=== PATIENT | female | born 1950 | race Caucasian/White ===

== ENCOUNTER 2017-05-31 12:08 | Observation (INO) | payer BC ==
[2017-05-31] MEDS ORDERED: Sodium Chloride 0.9% 10 ML Syringe FLUSH PRN (12:11)
[2017-05-31] MEDS ORDERED: Lactated Ringers 1,000 ML IV ONE (12:11)
[2017-05-31] MEDS ORDERED: Sodium Chloride 0.9% 2.5 ML Syringe FLUSH PRN (12:11)
--- NOTE | 2017-05-31 12:13 | EDM.PDOC ---
ED HPI GENERAL MEDICAL PROBLEM - General Stated Complaint: AMBULANCE Time Seen by Provider: 05/31/17 12:10 Source of Information: Reports: EMS History Limitations: Reports: No Limitations - History of Present Illness INITIAL COMMENTS - FREE TEXT/NARRATIVE: History of present illness: []Patient had low back surgery one week ago in [place] and came to the ED by ambulance for back pain, muscle cramps, nausea and fever. Patient states she also has diarrhea. Review of systems: As per history of present illness and below otherwise all systems reviewed and negative. Past medical history: As per history of present illness and as reviewed below otherwise noncontributory. Surgical history: As per history of present illness and as reviewed below otherwise noncontributory. Social history: No reported history of drug or alcohol abuse. Family history: As per history of present illness and as reviewed below otherwise noncontributory. Physical exam: General: Well developed, well nourished in NAD HEENT: Atraumatic, normocephalic, pupils reactive, negative for conjunctival pallor or scleral icterus, mucous membranes dry, throat clear, neck supple, nontender, trachea midline. Lungs: Clear to auscultation, breath sounds equal bilaterally, chest nontender. Heart: S1S2, regular, negative for clicks, rubs, or JVD. Abdomen: Soft, nondistended, nontender. Negative for masses or hepatosplenomegaly. Negative for costovertebral tenderness. Pelvis: Stable nontender. Genitourinary: Deferred. Rectal: Deferred. Extremities: Atraumatic, negative for cords or calf pain. Neurovascular unremarkable. Neuro: Awake, alert, oriented. Cranial nerves II through XII unremarkable. Cerebellum unremarkable. Motor and sensory unremarkable throughout. Exam nonfocal. Diagnostics: []CBC shows a white count 13,000 with left shift H&H is 9/28, chemistry negative except for glucose of 2:15 Therapeutics: []IV hydrated, Reglan and Zofran given for nausea she declined pain meds Impression: []The operative pain, Plan: []Increase fluids decrease Percocet, although primary care Definitive disposition and diagnosis as appropriate pending reevaluation and review of above. Head ache and neck pain Pain Score (Numeric/FACES): 9 - Related Data Allergies Allergy/AdvReac Type Severity Reaction Status Date / Time No Known Allergies Allergy Verified 05/31/17 12:27 Home Meds: Home Meds tiZANidine [Zanaflex] 4 mg PO Q8H PRN 11/15/14 [History] Acetaminophen/oxyCODONE [Percocet 325-5 MG] 1 each PO Q4H PRN 05/31/17 [History] Alendronate [Fosamax] 10 mg PO Q7D@0700 05/31/17 [History] Calcium Carbonate [Calcium] 1,000 mg PO DAILY 05/31/17 [History] Cholecalciferol (Vitamin D3) [Vitamin D3] 800 units PO DAILY 05/31/17 [History] Gabapentin [Neurontin] 600 mg PO TID 05/31/17 [History] LORazepam [Ativan] 0.25 mg PO Q8H PRN 05/31/17 [History] Polyethylene Glycol 3350 [MiraLAX] 17 gm PO DAILY 05/31/17 [History] Sennosides [Senna] 2 tab PO BEDTIME PRN 05/31/17 [History] atorvaSTATin [Lipitor] 20 mg PO BEDTIME 05/31/17 [History] metFORMIN HCl [Metformin HCl] 1,000 mg PO BIDMEALS 05/31/17 [History] Past Medical History 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 , 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 Musculoskeletal History: Reports: Neck Pain, Chronic, Other (See Below) Other Musculoskeletal History: osteopenia Neurological History: Reports: Other (See Below) Other Neuro History: BOTOX EVERY 3 MONTHS FOR HEADACHES; CORTISONE INJECTIONS FOR LBP AND SCIATICA EVERY 1-2 YEARS Oncologic (Cancer) History: Reports: Cervix - Past Surgical History HEENT Surgical History: Reports: Naso-Sinus Surgery, Oral Surgery Musculoskeletal Surgical History: Reports: Other (See Below) Other Musculoskeletal Surgeries/Procedures:: foot surgery Social & Family History - Tobacco Use Smoking Status *Q: Never Smoker Second Hand Smoke Exposure: No - Recreational Drug Use Recreational Drug Use: No ED ROS GENERAL - Review of Systems Review Of Systems: See Below (See history of present illness) ED EXAM,LOWER BACK PAIN/INJURY - Physical Exam Exam: See Below (See history of present illness) Course - Vital Signs Last Recorded V/S: Last Vital Signs Temp 98.4 F 05/31/17 12:34 Pulse 92 05/31/17 14:22 Resp 22 H 05/31/17 14:22 BP 152/86 H 05/31/17 14:22 Pulse Ox 98 05/31/17 14:22 - Orders/Labs/Meds Orders: Active Orders 24 hr Category Date Time Status Abdomen Pelvis w Cont [CT] Stat Exams 05/31/17 13:34 Taken Chest 1V Frontal [CR] Stat Exams 05/31/17 12:14 Taken UA W/MICROSCOPIC [URIN] Stat Lab 05/31/17 14:46 Ordered Sodium Chloride 0.9% [Saline Flush] Med 05/31/17 12:11 Active 10 ml FLUSH ASDIRECTED PRN Sodium Chloride 0.9% [Saline Flush] Med 05/31/17 12:11 Active 2.5 ml FLUSH ASDIRECTED PRN Saline Lock Insert [OM.PC] Stat Oth 05/31/17 12:11 Ordered Medication Orders Sodium Chloride (Saline Flush) 10 ml FLUSH ASDIRECTED PRN PRN Reason: Keep Vein Open Last Admin: 05/31/17 12:28 Dose: 10 ml Sodium Chloride (Saline Flush) 2.5 ml FLUSH ASDIRECTED PRN PRN Reason: Keep Vein Open Last Admin: 05/31/17 12:28 Dose: 2.5 ml Labs: Laboratory Tests 05/31/17 05/31/17 05/31/17 Range/Units 12:31 12:31 14:46 WBC 13.84 H (4.0-11.0) K/uL RBC 3.30 L (4.30-5.90) M/uL Hgb 9.6 L (12.0-16.0) g/dL Hct 28.9 L (36.0-46.0) % MCV 87.6 (80.0-98.0) fL MCH 29.1 (27.0-32.0) pg MCHC 33.2 (31.0-37.0) g/dL RDW Std Deviation 41.7 (28.0-62.0) fl RDW Coeff of Sarah 13 (11.0-15.0) % Plt Count 322 (150-400) K/uL MPV 9.90 (7.40-12.00) fL Neut % (Auto) 89.4 H (48.0-80.0) % Lymph % (Auto) 5.5 L (16.0-40.0) % [place] % (Auto) 4.6 (0.0-15.0) % Eos % (Auto) 0.4 (0.0-7.0) % Baso % (Auto) 0.1 (0.0-1.5) % Neut # (Auto) 12.4 H (1.4-5.7) K/uL Lymph # (Auto) 0.8 (0.6-2.4) K/uL [place] # (Auto) 0.6 (0.0-0.8) K/uL Eos # (Auto) 0.1 (0.0-0.7) K/uL Baso # (Auto) 0.0 (0.0-0.1) K/uL Nucleated RBC % 0.0 /100WBC Nucleated RBCs # 0 K/uL Sodium 138 (136-145) mmol/L Potassium 3.7 (3.5-5.1) mmol/L Chloride 102 (98-107) mmol/L Carbon Dioxide 24.9 (21.0-32.0) mmol/L BUN 13 (7.0-18.0) mg/dL Creatinine 0.8 (0.6-1.0) mg/dL Est Cr Clr Drug Dosing 58.48 mL/min Estimated GFR (MDRD) > 60.0 ml/min Glucose 215 H (74-106) mg/dL Calcium 8.5 (8.5-10.1) mg/dL Total Bilirubin 0.4 (0.2-1.0) mg/dL AST 60 H (15-37) IU/L ALT 33 (14-63) IU/L Alkaline Phosphatase 78 (46-116) U/L Total Protein 6.9 (6.4-8.2) g/dL Albumin 2.9 L (3.4-5.0) g/dL Globulin 4.0 H (2.0-3.5) g/dL Albumin/Globulin Ratio 0.7 L (1.3-2.8) Urine Color YELLOW Urine Appearance CLEAR Urine pH 6.5 (5.0-8.0) Ur Specific [place] <= 1.005 (1.001-1.035) Urine Protein NEGATIVE (NEGATIVE) mg/dL Urine Glucose (UA) NEGATIVE (NEGATIVE) mg/dL Urine Ketones 15 H (NEGATIVE) mg/dL Urine Occult Blood NEGATIVE (NEGATIVE) Urine Nitrite NEGATIVE (NEGATIVE) Urine Bilirubin NEGATIVE (NEGATIVE) Urine Urobilinogen 0.2 (<2.0) EU/dL Ur Leukocyte Esterase NEGATIVE (NEGATIVE) Urine RBC 0-1 (0-2/HPF) Urine WBC 0-3 (0-5/HPF) Ur Epithelial Cells FEW (NONE-FEW) Urine Bacteria FEW (NEGATIVE) Meds: Medications Generic Name Dose Route Start Last Admin Trade Name Freq PRN Reason Stop Dose Admin Sodium Chloride 10 ml 05/31/17 12:11 05/31/17 12:28 Saline Flush FLUSH 10 ml ASDIRECTED PRN Administration Keep Vein Open Sodium Chloride 2.5 ml 05/31/17 12:11 05/31/17 12:28 Saline Flush FLUSH 2.5 ml ASDIRECTED PRN Administration Keep Vein Open Discontinued Medications Generic Name Dose Route Start Last Admin Trade Name Freq PRN Reason Stop Dose Admin Lactated Ringer's 1,000 mls @ 999 mls/hr 05/31/17 12:11 05/31/17 12:25 Ringers, Lactated IV 05/31/17 13:11 999 mls/hr .BOLUS ONE Administration Metoclopramide HCl 10 mg 05/31/17 12:20 05/31/17 12:29 Reglan IV 05/31/17 12:21 10 mg ONETIME ONE Administration Morphine Sulfate 2 mg 05/31/17 13:31 Morphine IVPUSH 05/31/17 13:32 ONETIME ONE Departure - Departure Time of Disposition: 15:15 Disposition: Home, Self-Care 01 Condition: Good Clinical Impression: Postoperative pain - Discharge Information Referrals: PCP,None [Primary Care Provider] - Additional Instructions: The following information is given to patients seen in the emergency department who are being discharged to home. This information is to outline your options for follow-up care. We provide all patients seen in our emergency department with a follow-up referral. The need for follow-up, as well as the timing and circumstances, are variable depending upon the specifics of your emergency department visit. If you don't have a primary care physician on staff, we will provide you with a referral. We always advise you to contact your personal physician following an emergency department visit to inform them of the circumstance of the visit and for follow-up with them and/or the need for any referrals to a consulting specialist. The emergency department will also refer you to a specialist when appropriate. This referral assures that you have the opportunity for follow-up care with a specialist. All of these measure are taken in an effort to provide you with optimal care, which includes your follow-up. Under all circumstances we always encourage you to contact your private physician who remains a resource for coordinating your care. When calling for follow-up care, please make the office aware that this follow-up is from your recent emergency room visit. If for any reason you are refused follow-up, please contact the [facility] Emergency Department at and asked to speak to the emergency department charge nurse. [facility] [address] [place] [address] - My Orders Last 24 Hours: My Active Orders 05/31/17 12:11 Sodium Chloride 0.9% [Saline Flush] 10 ml FLUSH ASDIRECTED PRN Sodium Chloride 0.9% [Saline Flush] 2.5 ml FLUSH ASDIRECTED PRN Saline Lock Insert [OM.PC] Stat 05/31/17 12:14 Chest 1V Frontal [CR] Stat 05/31/17 13:34 Abdomen Pelvis w Cont [CT] Stat 05/31/17 14:46 UA W/MICROSCOPIC [URIN] Stat - Assessment/Plan Last 24 Hours: My Active Orders 05/31/17 12:11 Sodium Chloride 0.9% [Saline Flush] 10 ml FLUSH ASDIRECTED PRN Sodium Chloride 0.9% [Saline Flush] 2.5 ml FLUSH ASDIRECTED PRN Saline Lock Insert [OM.PC] Stat 05/31/17 12:14 Chest 1V Frontal [CR] Stat 05/31/17 13:34 Abdomen Pelvis w Cont [CT] Stat 05/31/17 14:46 UA W/MICROSCOPIC [URIN] Stat
[2017-05-31] MEDS ORDERED: Metoclopramide 10 MG/2 ML SDV IV ONE (12:20)
[2017-05-31 12:53] LABS: CHLORIDE,CL 102 mmol/L (98-107); SODIUM,NA 138 mmol/L (136-145)
[2017-05-31] MEDS ORDERED: Morphine 4 MG/ML Syringe IVPUSH ONE (13:31)
[2017-05-31] MEDS ORDERED: Iopamidol 755 Mg/ML 100 ML Bottle IVPUSH ONE (15:27)
[2017-05-31] MEDS ORDERED: LORazepam 0.5 MG Tab PO PRN (17:07)
[2017-05-31] MEDS ORDERED: tiZANidine 4 MG Tab PO PRN (17:07)
[2017-05-31] MEDS ORDERED: Sennosides 8.6 MG Tab PO PRN (17:07)
[2017-05-31] MEDS ORDERED: Acetaminophen/oxyCODONE 325-5 MG Tab PO PRN (17:07)
[2017-05-31] MEDS ORDERED: Ondansetron 4 MG/2 ML SDV IVPUSH PRN (17:08)
[2017-05-31] MEDS ORDERED: Morphine 10 MG/ML Syringe IVPUSH PRN (17:08)
[2017-05-31] MEDS ORDERED: Lactated Ringers 1,000 ML IV SCH (17:15)
--- NOTE | 2017-05-31 17:15 | PCM.HP ---
H&P History of Present Illness - General Admit Problem/Dx: Admission Diagnosis/Problem Admission Diagnosis/Problem Pain - History of Present Illness Initial Comments - Free Text/Narative: 66 yo female with pmh of DM who had spinal fusion surgery six days ago. She had been doing well and tolerating pain following surgery until today. She reports lower back pain and spasms of her legs. She is somewhat tremulous on exam today which the reports is likely anxiety driven. Head ache and neck pain Pain Score (Numeric/FACES): 4 - Related Data Allergies/Adverse Reactions: Allergies Allergy/AdvReac Type Severity Reaction Status Date / Time No Known Allergies Allergy Verified 05/31/17 12:27 Home Medications: Home Meds tiZANidine [Zanaflex] 4 mg PO Q8H PRN 11/15/14 [History] Acetaminophen/oxyCODONE [Percocet 325-5 MG] 1 - 2 each PO Q4H PRN 05/31/17 [ History] Alendronate [Fosamax] 10 mg PO Q7D@0700 05/31/17 [History] Calcium Carbonate [Calcium] 1,000 mg PO DAILY 05/31/17 [History] Cholecalciferol (Vitamin D3) [Vitamin D3] 800 units PO DAILY 05/31/17 [History] Gabapentin [Neurontin] 600 mg PO TID 05/31/17 [History] LORazepam [Ativan] 0.25 mg PO Q8H PRN 05/31/17 [History] Polyethylene Glycol 3350 [MiraLAX] 17 gm PO DAILY 05/31/17 [History] Sennosides [Senna] 2 tab PO BEDTIME PRN 05/31/17 [History] atorvaSTATin [Lipitor] 20 mg PO BEDTIME 05/31/17 [History] metFORMIN HCl [Metformin HCl] 1,000 mg PO BIDMEALS 05/31/17 [History] Past Medical History Cardiovascular History: Reports: High Cholesterol 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 , 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 Musculoskeletal History: Reports: Neck Pain, Chronic, Other (See Below) Other Musculoskeletal History: osteopenia Neurological History: Reports: Other (See Below) Other Neuro History: BOTOX EVERY 3 MONTHS FOR HEADACHES; CORTISONE INJECTIONS FOR LBP AND SCIATICA EVERY 1-2 YEARS Oncologic (Cancer) History: Reports: Cervix - Past Surgical History HEENT Surgical History: Reports: Naso-Sinus Surgery, Oral Surgery Musculoskeletal Surgical History: Reports: Other (See Below) Other Musculoskeletal Surgeries/Procedures:: foot surgery Social & Family History - Tobacco Use Smoking Status *Q: Never Smoker Second Hand Smoke Exposure: No - Recreational Drug Use Recreational Drug Use: No H&P Review of Systems - Review of Systems: Review Of Systems: ROS reveals no pertinent complaints other than HPI. Exam - Exam Exam: See Below - Vital Signs Vital Signs: Last Vital Signs Temp 36.9 C 05/31/17 12:34 Pulse 115 H 05/31/17 15:56 Resp 14 05/31/17 15:56 BP 158/77 H 05/31/17 15:56 Pulse Ox 93 L 05/31/17 15:56 Weight: 74.843 kg - Exam General: Alert, Oriented HEENT: Mucosa Moist & [place] Neck: Supple, Trachea Midline, Full Range of Motion Lungs: Clear to Auscultation, Normal Respiratory Effort Cardiovascular: Regular Rate, Regular Rhythm GI/Abdominal Exam: Soft, Non-Tender Back Exam: Paraspinal Tenderness, Vertebral Tenderness (along surgical scar, no erythema, edema, or induration around surgical site) Extremities: Normal Range of Motion, Non-Tender, No Pedal Edema Skin: Warm, Dry, Intact Neurological: Cranial Nerves Intact, Strength Equal Bilateral, Normal Speech, Normal Tone, Sensation Intact. No: Focal Deficit - Patient Data Lab Results Last 24 hrs: Laboratory Results - last 24 hr 05/31/17 05/31/17 05/31/17 Range/Units 12:31 12:31 14:46 WBC 13.84 H (4.0-11.0) K/uL RBC 3.30 L (4.30-5.90) M/uL Hgb 9.6 L (12.0-16.0) g/dL Hct 28.9 L (36.0-46.0) % MCV 87.6 (80.0-98.0) fL MCH 29.1 (27.0-32.0) pg MCHC 33.2 (31.0-37.0) g/dL RDW Std Deviation 41.7 (28.0-62.0) fl RDW Coeff of Sarah 13 (11.0-15.0) % Plt Count 322 (150-400) K/uL MPV 9.90 (7.40-12.00) fL Neut % (Auto) 89.4 H (48.0-80.0) % Lymph % (Auto) 5.5 L (16.0-40.0) % [place] % (Auto) 4.6 (0.0-15.0) % Eos % (Auto) 0.4 (0.0-7.0) % Baso % (Auto) 0.1 (0.0-1.5) % Neut # (Auto) 12.4 H (1.4-5.7) K/uL Lymph # (Auto) 0.8 (0.6-2.4) K/uL [place] # (Auto) 0.6 (0.0-0.8) K/uL Eos # (Auto) 0.1 (0.0-0.7) K/uL Baso # (Auto) 0.0 (0.0-0.1) K/uL Nucleated RBC % 0.0 /100WBC Nucleated RBCs # 0 K/uL Sodium 138 (136-145) mmol/L Potassium 3.7 (3.5-5.1) mmol/L Chloride 102 (98-107) mmol/L Carbon Dioxide 24.9 (21.0-32.0) mmol/L BUN 13 (7.0-18.0) mg/dL Creatinine 0.8 (0.6-1.0) mg/dL Est Cr Clr Drug Dosing 58.48 mL/min Estimated GFR (MDRD) > 60.0 ml/min Glucose 215 H (74-106) mg/dL Calcium 8.5 (8.5-10.1) mg/dL Total Bilirubin 0.4 (0.2-1.0) mg/dL AST 60 H (15-37) IU/L ALT 33 (14-63) IU/L Alkaline Phosphatase 78 (46-116) U/L Total Protein 6.9 (6.4-8.2) g/dL Albumin 2.9 L (3.4-5.0) g/dL Globulin 4.0 H (2.0-3.5) g/dL Albumin/Globulin Ratio 0.7 L (1.3-2.8) Urine Color YELLOW Urine Appearance CLEAR Urine pH 6.5 (5.0-8.0) Ur Specific [place] <= 1.005 (1.001-1.035) Urine Protein NEGATIVE (NEGATIVE) mg/dL Urine Glucose (UA) NEGATIVE (NEGATIVE) mg/dL Urine Ketones 15 H (NEGATIVE) mg/dL Urine Occult Blood NEGATIVE (NEGATIVE) Urine Nitrite NEGATIVE (NEGATIVE) Urine Bilirubin NEGATIVE (NEGATIVE) Urine Urobilinogen 0.2 (<2.0) EU/dL Ur Leukocyte Esterase NEGATIVE (NEGATIVE) Urine RBC 0-1 (0-2/HPF) Urine WBC 0-3 (0-5/HPF) Ur Epithelial Cells FEW (NONE-FEW) Urine Bacteria FEW (NEGATIVE) Result Diagrams: 05/31/17 12:31 05/31/17 12:31 Problem List Initiated/Reviewed/Updated: Yes Orders Last 24hrs: Active Orders 24 hr Category Date Time Status Patient Status [ADT] Stat ADT 05/31/17 15:54 Active Blood Glucose Check, Bedside [RC] TIDMEALS Care 05/31/17 17:08 Ordered Oxygen Therapy [RC] PRN Care 05/31/17 17:08 Ordered Up ad Deirdre [RC] ASDIRECTED Care 05/31/17 17:08 Ordered VTE/DVT Education [RC] PER UNIT ROUTINE Care 05/31/17 17:08 Ordered Vital Signs [RC] Q4H Care 05/31/17 17:08 Ordered [place] [employer] Diet [DIET] Diet 05/31/17 Breakfast Ordered Abdomen Pelvis w Cont [CT] Stat Exams 05/31/17 13:34 Taken Chest 1V Frontal [CR] Stat Exams 05/31/17 12:14 Taken BASIC METABOLIC PANEL,BMP [CHEM] AM Lab 06/01/17 05:11 Ordered CBC WITH AUTO DIFF [HEME] AM Lab 06/01/17 05:11 Ordered UA W/MICROSCOPIC [URIN] Stat Lab 05/31/17 14:46 Ordered Acetaminophen/oxyCODONE [Percocet 325-5 MG] Med 05/31/17 17:07 Ordered 1 - 2 each PO Q4H PRN Calcium Carbonate [Calcium] Med 06/01/17 09:00 Ordered 1,000 mg PO DAILY Cholecalciferol (Vitamin D3) [Vitamin D3] Med 06/01/17 09:00 Ordered 800 units PO DAILY Gabapentin Med 05/31/17 22:00 Ordered 600 mg PO TID Insulin Aspart [NovoLOG] Med 06/01/17 07:30 Ordered See Protocol SUBCUT TIDAC LORazepam [Ativan] Med 05/31/17 17:07 Ordered 0.25 mg PO Q8H PRN Lactated Ringers @ 125 MLS/HR(1000ml) Med 05/31/17 17:15 Ordered Lactated Ringers [Ringers, Lactated] 1,000 ml IV ASDIRECTED Morphine Med 05/31/17 17:08 Ordered 2 mg IVPUSH Q2H PRN Ondansetron [Zofran] Med 05/31/17 17:08 Ordered 4 mg IVPUSH Q4H PRN Polyethylene Glycol 3350 [MiraLAX] Med 06/01/17 09:00 Ordered 17 gm PO DAILY Sennosides [Senna] Med 05/31/17 17:07 Ordered 2 tab PO BEDTIME PRN Sodium Chloride 0.9% [Saline Flush] Med 05/31/17 12:11 Active 10 ml FLUSH ASDIRECTED PRN Sodium Chloride 0.9% [Saline Flush] Med 05/31/17 12:11 Active 2.5 ml FLUSH ASDIRECTED PRN atorvaSTATin [Lipitor] Med 05/31/17 21:00 Ordered 20 mg PO BEDTIME tiZANidine [Zanaflex] Med 05/31/17 17:07 Ordered 4 mg PO Q8H PRN Saline Lock Insert [OM.PC] Stat Oth 05/31/17 12:11 Ordered Sequential Compression Device [OM.PC] Per Unit Routine Oth 05/31/17 17:08 Ordered Resuscitation Status Routine Resus Stat 05/31/17 17:08 Ordered Medication Orders Sodium Chloride (Saline Flush) 10 ml FLUSH ASDIRECTED PRN PRN Reason: Keep Vein Open Last Admin: 05/31/17 12:28 Dose: 10 ml Sodium Chloride (Saline Flush) 2.5 ml FLUSH ASDIRECTED PRN PRN Reason: Keep Vein Open Last Admin: 05/31/17 12:28 Dose: 2.5 ml Assessment/Plan Comment:: 66 yo female with recent back surgery admitted for pain control. Patient did spike fever of 102 on the medical floor. Blood cultures were obtained and she was started on IV Vancomycin and Zosyn. No obvious source of infection was identified. CT abdomen/pelvis reported no acute findings with postoperative changes of the posterolateral fusion at L4-5. Chest x-ray and UA were unremarkable. I spoke with Jesus Peralta at [facility] who then spoke with Dr. Villegas. Due to the fever it was felt patient may need exploration of surgical site. Dr. Villegas has accepted the patient for transfer. Transfer to [facility] was then arranged.
[2017-05-31] MEDS ORDERED: HYDROmorphone 2 MG/ML Syringe IVPUSH PRN (19:05)
[2017-05-31] MEDS ORDERED: HYDROmorphone 4 MG/ML Syringe IVPUSH PRN (19:31)
[2017-05-31] MEDS ORDERED: HYDROmorphone 1 MG/ML Syringe IVPUSH PRN (19:39)
[2017-05-31] MEDS ORDERED: atorvaSTATin 20 MG Tab PO SCH (21:00)
[2017-05-31] MEDS ORDERED: Piperacillin/Tazobactam 4.5 GM in Sodium Chloride 0.9% 100 ML IV SCH (21:00)
[2017-05-31 21:13] VITALS: BP 151/83
[2017-05-31] MEDS ORDERED: Non-Formulary Medication 1 Each (Gabapentin 600 MG) PO SCH (22:00)
[2017-06-01] MEDS ORDERED: Insulin Aspart 100 Units/ML 3 ML Pen SUBCUT SCH (07:30)
[2017-06-01] MEDS ORDERED: Cholecalciferol (Vitamin D3) 400 Unit Tab PO SCH (09:00)
[2017-06-01] MEDS ORDERED: Polyethylene Glycol 3350 Powder 17 GM Packet PO SCH (09:00)
[2017-06-01] MEDS ORDERED: Non-Formulary Medication 1 Each (Calcium Carbonate [Calcium] 1,000 MG) PO SCH (09:00)
--- NOTE | 2017-06-01 14:25 | CR ---
EXAM DATE: 05/31/17 PATIENT'S AGE: 66 Patient: MARGARITO APPLE Facility: [place], [place] Site . Site : 1950 Study: XRay Chest [id number] 1:33:32 PM Ordering Physician: Dmitri Flores Final Report: INDICATION: Pain shortness breath TECHNIQUE: Single view chest. FINDINGS: The lungs are clear. The heart, mediastinum and pulmonary vessels are of normal size. There is no evidence of pleural disease. IMPRESSION: Negative chest. Dictated by Aissatou Amaya MD @ May 31 2017 2:00PM (Electronic Signature) Report Signed by Proxy. KARINE
--- NOTE | 2017-06-01 14:26 | CT ---
EXAM DATE: 05/31/17 PATIENT'S AGE: 66 Patient: MARGARITO APPLE Facility: [place], [place] Site . Site : 1950 Study: CT Abdomen/Pelvis [id number] 2:29:32 PM Ordering Physician: Dmitri Flores Final Report: INDICATION: abd pain Indication: Abdominal pain. Technique: CT of the abdomen pelvis. 100 cc of Isovue 370 IV. Coronal/ sagittal reconstruction images. Comparison: CT of the abdomen pelvis 09/17/2016. Findings: Lung bases: There is no pleural or pericardial effusion. The heart size is normal. The lung bases demonstrate no acute airspace disease. There is no basilar pneumothorax. Abdomen/pelvis: Diffuse hepatic steatosis. No solid hepatic mass. Sparing near the gallbladder fossa. No adrenal mass. Spleen size is normal. No pancreatic mass or pancreatic duct dilation. No glandular atrophy. There is no wall thickening within the small bowel or colon. There is no perienteric edema. There is no transition point to indicate a mechanical small-bowel or colonic obstruction. No abdominal aortic aneurysm. Celiac axis, SMA, and ROSITA are patent. No adenopathy is seen by size criteria in the pelvis, retroperitoneal, gastrohepatic ligament, small bowel mesentery. Uterus appears surgically absent. The bone windows demonstrate no lytic or blastic bone lesions. Osteophytic spurring present of the endplates. The patient is post posterior fusion at L4- L5. There is a mild compression deformity present at the superior endplate of L3. Alignment is preserved on sagittal reconstruction images. Fusion changes are new when compared with 09/17/2016. Impression: 1. No acute findings are seen to explain the patient`s symptoms. 2. Postoperative changes of the posterolateral fusion at L4-5, new from 2016. 3. Minimal compression deformity of the superior endplate of L3. 4. Diffuse hepatic steatosis, with a region of sparing near the gallbladder fossa. Dictated by Bennie Max MD @ 05/31/2017 3:02:28 PM Dictated by: Bennie Max MD @ 05/31/2017 15:02:37 (Electronic Signature) Report Signed by Proxy. [facility] AREA HOSPITALCalli
== END 2017-05-31 21:35 ==
LOC: MW.ED 12:08 → MW.MS 15:54
PROVIDERS: ADMIT Internal Medicine; ATTEND Internal Medicine
DX: R50.9 Fever, unspecified (principal); M54.5 Low back pain; E78.00 Pure hypercholesterolemia, unspecified; E11.9 Type 2 diabetes mellitus without complications; Z79.84 Long term (current) use of oral hypoglycemic drugs; Z79.899 Other long term (current) drug therapy
CPT/HCPCS: 36415; 71045; 74177; 80053; 81001; 85025; 87040; 96361; 96365; 96375; 99285; A9270; G0378; J1170; J2270; J2405; J2543; J2765; J3370; J7030; J7050; J7120; Q9967; 82962; 96374; 99283

== ENCOUNTER 2018-04-03 12:05 | Emergency (ER) | payer BC, MEDICARE ==
[2018-04-03 12:23] VITALS: BP 145/87
--- NOTE | 2018-04-03 12:41 | EDM.PDOC ---
ED HPI GENERAL MEDICAL PROBLEM - General Chief Complaint: Genitourinary Problem Stated Complaint: UTI Time Seen by Provider: 04/03/18 12:10 Source of Information: Reports: Patient History Limitations: Reports: No Limitations - History of Present Illness INITIAL COMMENTS - FREE TEXT/NARRATIVE: History of present illness: []Patient has had pain with urination since March 28 has been persistent. She has not measured a temperature but states she feels like she is having fevers. She denies any vomiting, diarrhea, abdominal pain or any other complaints. Review of systems: As per history of present illness and below otherwise all systems reviewed and negative. Past medical history: As per history of present illness and as reviewed below otherwise noncontributory. Surgical history: As per history of present illness and as reviewed below otherwise noncontributory. Social history: No reported history of drug or alcohol abuse. Family history: As per history of present illness and as reviewed below otherwise noncontributory. Physical exam: General: Well developed, well nourished in NAD HEENT: Atraumatic, normocephalic, pupils reactive, negative for conjunctival pallor or scleral icterus, mucous membranes moist, throat clear, neck supple, nontender, trachea midline. Lungs: Clear to auscultation, breath sounds equal bilaterally, chest nontender. Heart: S1S2, regular, negative for clicks, rubs, or JVD. Abdomen: NABS, Soft, nondistended, nontender. Negative for masses or hepatosplenomegaly. Negative for costovertebral tenderness. Pelvis: Stable nontender. Genitourinary: Deferred. Rectal: Deferred. Extremities: Atraumatic, negative for cords or calf pain. Neurovascular unremarkable. Neuro: Awake, alert, oriented. Cranial nerves II through XII unremarkable. Cerebellum unremarkable. Motor and sensory unremarkable throughout. Exam nonfocal. Skin:warm and dry Diagnostics: UA Therapeutics: None ED Course: Unremarkable Impression: UTI Prescriptions: Bactrim Plan: Increase fluids, take meds as directed. Tylenol Motrin for pain and fevers, follow-up with primary care or return to ER if symptoms worsen or change. Definitive disposition and diagnosis as appropriate pending reevaluation and review of above. 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 Musculoskeletal History: Reports: Neck Pain, Chronic, Other (See Below) Other Musculoskeletal History: osteopenia Neurological History: Reports: Other (See Below) Other Neuro History: BOTOX EVERY 3 MONTHS FOR HEADACHES; CORTISONE INJECTIONS FOR LBP AND SCIATICA EVERY 1-2 YEARS Psychiatric History: Reports: Anxiety Endocrine/Metabolic History: Reports: Diabetes, Type II Hematologic History: Reports: None Immunologic History: Reports: None Oncologic (Cancer) History: Reports: Cervix Dermatologic History: Reports: None - Past Surgical History HEENT Surgical History: Reports: Naso-Sinus Surgery, Oral Surgery GI Surgical History: Reports: Other (See Below) Other GI Surgeries/Procedures: "Cancer to abdomen when younger" Musculoskeletal Surgical History: Reports: Other (See Below) Other Musculoskeletal Surgeries/Procedures:: foot surgery Social & Family History - Family History Family Medical History: Noncontributory - Tobacco Use Smoking Status *Q: Never Smoker - Caffeine Use Caffeine Use: Reports: Coffee, Soda, Tea - Recreational Drug Use Recreational Drug Use: No ED ROS GENERAL - Review of Systems Review Of Systems: ROS reveals no pertinent complaints other than HPI. ED EXAM, RENAL/ - Physical Exam Exam: See Below (See history of present illness) Course - Vital Signs Last Recorded V/S: Last Vital Signs Temp 96.0 F 04/03/18 12:21 Pulse 85 04/03/18 12:21 Resp 18 04/03/18 12:21 BP 145/87 H 04/03/18 12:21 Pulse Ox 95 04/03/18 12:21 - Orders/Labs/Meds Orders: Active Orders 24 hr Category Date Time Status CULTURE URINE [RM] Routine Lab 04/03/18 12:21 Received Labs: Laboratory Tests 04/03/18 Range/Units 12:25 Urine Color YELLOW Urine Appearance CLEAR Urine pH 6.0 (5.0-8.0) Ur Specific [place] 1.020 (1.001-1.035) Urine Protein NEGATIVE (NEGATIVE) mg/dL Urine Glucose (UA) NEGATIVE (NEGATIVE) mg/dL Urine Ketones NEGATIVE (NEGATIVE) mg/dL Urine Occult Blood NEGATIVE (NEGATIVE) Urine Nitrite NEGATIVE (NEGATIVE) Urine Bilirubin NEGATIVE (NEGATIVE) Urine Urobilinogen 0.2 (<2.0) EU/dL Ur Leukocyte Esterase SMALL H (NEGATIVE) Urine RBC 1-2 (0-2/HPF) Urine WBC 30-40 (0-5/HPF) Ur Epithelial Cells RARE (NONE-FEW) Urine Bacteria FEW (NEGATIVE) Departure - Departure Time of Disposition: 12:56 Disposition: Home, Self-Care 01 Condition: Good Clinical Impression: UTI (urinary tract infection) Qualifiers: Urinary tract infection type: site unspecified Hematuria presence: without hematuria Qualified Code(s): N39.0 - Urinary tract infection, site not specified - Discharge Information *PRESCRIPTION DRUG MONITORING PROGRAM REVIEWED*: No *COPY OF PRESCRIPTION DRUG MONITORING REPORT IN PATIENT FOSTER: No Prescriptions: Sulfamethoxazole/Trimethoprim [Bactrim Ds Tablet] 1 each PO BID #20 tablet Referrals: Grey Wallace MD [Primary Care Provider] - Forms: ED Department Discharge Additional Instructions: The following information is given to patients seen in the emergency department who are being discharged to home. This information is to outline your options for follow-up care. We provide all patients seen in our emergency department with a follow-up referral. The need for follow-up, as well as the timing and circumstances, are variable depending upon the specifics of your emergency department visit. If you don't have a primary care physician on staff, we will provide you with a referral. We always advise you to contact your personal physician following an emergency department visit to inform them of the circumstance of the visit and for follow-up with them and/or the need for any referrals to a consulting specialist. The emergency department will also refer you to a specialist when appropriate. This referral assures that you have the opportunity for follow-up care with a specialist. All of these measure are taken in an effort to provide you with optimal care, which includes your follow-up. Under all circumstances we always encourage you to contact your private physician who remains a resource for coordinating your care. When calling for follow-up care, please make the office aware that this follow-up is from your recent emergency room visit. If for any reason you are refused follow-up, please contact the [facility] Emergency Department at and asked to speak to the emergency department charge nurse. Increase fluids, take meds as directed. Tylenol Motrin for pain and fevers, follow-up with primary care or return to ER if symptoms worsen or change. [facility] [address] [place] [id number] - My Orders Last 24 Hours: My Active Orders 04/03/18 12:21 CULTURE URINE [RM] Routine - Assessment/Plan Last 24 Hours: My Active Orders 04/03/18 12:21 CULTURE URINE [RM] Routine
== END 2018-04-03 13:20 | disposition home or self-care (01) ==
LOC: MW.ED 12:05
DX: N39.0 Urinary tract infection, site not specified (principal); E78.00 Pure hypercholesterolemia, unspecified; I10 Essential (primary) hypertension; Z79.899 Other long term (current) drug therapy
CPT/HCPCS: 81001; 87086; 87088; 87186; 99283

== ENCOUNTER 2020-04-29 11:09 | Emergency (ER) | payer BC ==
--- NOTE | 2020-04-29 11:16 | EDM.PDOC ---
ED HPI GENERAL MEDICAL PROBLEM - General Chief Complaint: ENT Problem Stated Complaint: LEFT EYE SWOLLEN Time Seen by Provider: 04/29/20 11:11 Source of Information: Reports: Patient History Limitations: Reports: No Limitations - History of Present Illness INITIAL COMMENTS - FREE TEXT/NARRATIVE: 69-year-old female with history of diabetes presents with purulent drainage from the left eye since yesterday. She also notes mild swelling to the left lateral upper eyelid. She denies blurry vision, fever, chills, contact lens use, headache, dizziness, vomiting. ROS: A 10-point review of systems, other than pertinent positives and negatives as stated per HPI, is otherwise negative Past medical history: No additional pertinent history Past Surgical history: No additional pertinent history Social history: No additional pertinent history Family history: No additional pertinent history PHYSICAL EXAM General: AOx4, GCS = 15, No distress HEENT: dry mucous membrane, left eye slightly injected with matting on upper and lower eyelid, with mild swelling to left upper lateral lid. EOMI, PERRL Neck: supple, no meningismus, no Kernig or Brudzinski Cardiac: S1S2 RRR Respiratory: CTAB, no crackles or rales, no wheezing Abdomen: Soft, nontender, no rebound or guarding, nondistended, no pulsatile mass. Back: nontender Musculoskeletal: NVI distally, no deformity Neuro: No focal deficits, CN 2 - 12 WNL. Left Eye Pain Score (Numeric/FACES): 5 - Related Data Allergies Allergy/AdvReac Type Severity Reaction Status Date / Time No Known Allergies Allergy Verified 04/29/20 11:19 Home Meds: Home Meds Empagliflozin [Jardiance] 25 mg PO DAILY 04/29/20 [History] Erythromycin Base [Erythromycin 0.5% Ophth Oint] 1 applic EYELF BID 7 Days #1 tube 04/29/20 [Rx] Insulin Glargine,Hum.Rec.Anlog [Basaglar Kwikpen U-100] 1 dose SUBCUT ASDIRECTED 04/29/20 [History] Losartan [Cozaar] 50 mg PO DAILY 04/29/20 [History] Nortriptyline 10 mg PO DAILY 04/29/20 [History] Omeprazole 20 mg PO DAILY 04/29/20 [History] atorvaSTATin [Lipitor] 20 mg PO DAILY 04/29/20 [History] tiZANidine [Zanaflex] 4 mg PO DAILY 04/29/20 [History] Past Medical History Cardiovascular History: Reports: High Cholesterol, Hypertension Gastrointestinal History: Reports: None Genitourinary History: Reports: None 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 , 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 Musculoskeletal History: Reports: Neck Pain, Chronic, Other (See Below) Other Musculoskeletal History: osteopenia Neurological History: Reports: Other (See Below) Other Neuro History: BOTOX EVERY 3 MONTHS FOR HEADACHES; CORTISONE INJECTIONS FOR LBP AND SCIATICA EVERY 1-2 YEARS Psychiatric History: Reports: Anxiety Endocrine/Metabolic History: Reports: Diabetes, Type II Hematologic History: Reports: None Immunologic History: Reports: None Oncologic (Cancer) History: Reports: Cervix Dermatologic History: Reports: None - Past Surgical History HEENT Surgical History: Reports: Naso-Sinus Surgery, Oral Surgery GI Surgical History: Reports: Other (See Below) Other GI Surgeries/Procedures: "Cancer to abdomen when younger" Musculoskeletal Surgical History: Reports: Other (See Below) Other Musculoskeletal Surgeries/Procedures:: foot surgery Social & Family History - Family History Family Medical History: No Pertinent Family History - Caffeine Use Caffeine Use: Reports: Coffee, Soda, Tea ED ROS GENERAL - Review of Systems Review Of Systems: See Below ED EXAM, GENERAL - Physical Exam Exam: See Below Course - Vital Signs Last Recorded V/S: Last Vital Signs Temp 97.8 F 04/29/20 11:22 Pulse 92 04/29/20 11:22 Resp 16 04/29/20 11:22 BP 139/98 H 04/29/20 11:22 Pulse Ox 96 04/29/20 11:22 Departure - Departure Time of Disposition: 11:36 Disposition: Home, Self-Care 01 Condition: Good Clinical Impression: Blepharitis of eyelid of left eye - Discharge Information *PRESCRIPTION DRUG MONITORING PROGRAM REVIEWED*: Not Applicable Prescriptions: Erythromycin Base [Erythromycin 0.5% Ophth Oint] 1 applic EYELF BID 7 Days #1 tube Instructions: Blepharitis Referrals: PCP,Not In Area [Primary Care Provider] - Forms: ED Department Discharge Additional Instructions: The need for follow-up, as well as the timing and circumstances, are variable depending upon the specifics of your emergency department visit. If you don't have a primary care physician on staff, we will provide you with a referral. We always advise you to contact your personal physician following an emergency department visit to inform them of the circumstance of the visit and for follow-up with them and/or the need for any referrals to a consulting specialist. The emergency department will also refer you to a specialist when appropriate. This referral assures that you have the opportunity for follow-up care with a specialist. All of these measure are taken in an effort to provide you with optimal care, which includes your follow-up. Under all circumstances we always encourage you to contact your private physician who remains a resource for coordinating your care. When calling for follow-up care, please make the office aware that this follow-up is from your recent emergency room visit. If for any reason you are refused follow-up, please contact the [facility] Emergency Department at and asked to speak to the emergency department charge nurse. If you do not have a primary care doctor, please follow up with the clinics below within 3-5 days. [facility] [address] [place] [id number] [facility] [address] [place] [id number] Sepsis Event Note (ED) - Focused Exam Vital Signs: Vital Signs Temp Pulse Resp BP Pulse Ox 04/29/20 11:22 97.8 F 92 16 139/98 H 96
[2020-04-29 11:24] VITALS: BP 139/98; PULSE 92
== END 2020-04-29 11:49 | disposition home or self-care (01) ==
LOC: MW.ED 11:09
DX: H01.004 Unspecified blepharitis left upper eyelid (principal); E78.00 Pure hypercholesterolemia, unspecified; I10 Essential (primary) hypertension; E11.9 Type 2 diabetes mellitus without complications; Z79.4 Long term (current) use of insulin; Z79.899 Other long term (current) drug therapy
CPT/HCPCS: 99282